=== PATIENT | female | born 1995 | race American Indian/Alaskan Native ===

== ENCOUNTER 2018-08-29 11:05 | Emergency (ER) | payer OTHER ==
--- NOTE | 2018-08-29 11:15 | Emergency Department Report ---
Blank Doc - Documentation Documentation: This is a 22 y.o. female that presents with right sided pain. Patient is 18 wks gestation. She is followed by [facility] in [place]. Patient reports pain is 8/10 on pain scale, pressure, and intermittent. LMP 04/20/2019, A0. Denies vaginal bleeding, vaginal discharge, and back pain. Ordered labs Fast track for further evaluation.
[2018-08-29 11:18] VITALS: BP 114/48
[2018-08-29 12:01] LABS: Bilirubin,Urine NEG (Negative); Blood,Urine NEG (Negative); Color,Urine Yellow (Yellow); Mucus,Urine FEW /HPF; Urobilinogen,Urine < 2.0 mg/dL (<2.0)
[2018-08-29] MEDS ORDERED: NACL 0.9% 1000 ML 1,000 ML IV ONE (12:38)
[2018-08-29] MEDS ORDERED: ZOFRAN IV ONE (12:38)
[2018-08-29] MEDS ORDERED: TYLENOL PO ONE (12:38)
[2018-08-29 12:56] LABS: Basophils % (Auto) 0.5 % (0.0-1.8); Eosinophils % (Auto) 0.1 % (0.0-4.3); Hematocrit 31.6 % (30.3-42.9); Lymphocytes # (Auto) 0.7 K/mm3 (1.2-5.4); Mean Corpuscular HGB Conc 35 % (30-34); Mean Corpuscular Volume 91 fl (79-97); Monocytes # (Auto) 0.2 K/mm3 (0.0-0.8); Platelet Count 161 K/mm3 (140-440); Red Blood Count 3.49 M/mm3 (3.65-5.03)
[2018-08-29 13:32] LABS: Alanine Aminotransferase 12 units/L (7-56); BUN/Creatinine Ratio 13; Blood Urea Nitrogen 8 mg/dL (7-17); Calcium 9.5 mg/dL (8.4-10.2); Hemolysis Index 10
--- NOTE | 2018-08-29 13:38 | Emergency Department Report ---
ED Abdominal Pain HPI - General Chief Complaint: Abdominal Pain Stated Complaint: 18 WKS /DIZZINESS/ABD PAIN Time Seen by Provider: 08/29/18 11:12 Source: patient Mode of arrival: Ambulatory Limitations: No Limitations - History of Present Illness Initial Comments: 22-year-old female currently 18 weeks with no past medical or surgical history presents to the hospital complaining right-sided abdominal pain since 9 PM last night. Patient has had a right lower quadrant and described as intermittent pressure rated a sensitivity admitted to see. Worse with palpation. Patient has had nausea and vomiting 4 episodes this a.m. She den ies hematochezia, hematemesis, diarrhea, melena, dysuria, back distress, vaginal bleeding, or fever. She has had a care with care with [facility]. This is her first . Severity scale (0 -10): 1 - Related Data Previous Rx's Medication Instructions Recorded Last Taken Type Acetaminophen [Tylenol Extra 1 - 2 mg PO Q6HR PRN #20 tablet 08/29/18 Unknown Rx Strength] Ondansetron [Zofran Odt] 4 mg PO Q8HR PRN #20 tab.rapdis 08/29/18 Unknown Rx Allergies Allergy/AdvReac Type Severity Reaction Status Date / Time No Known Allergies Allergy Unverified 08/29/18 11:09 ED Review of Systems ROS: Stated complaint: 18 WKS /DIZZINESS/ABD PAIN Other details as noted in HPI Comment: All other systems reviewed and negative ED Past Medical Hx - Past Medical History Previous Medical History?: No - Surgical History Past Surgical History?: No - Social History Smoking Status: Never Smoker Substance Use Type: None - Medications Home Medications: Home Medications Medication Instructions Recorded Confirmed Last Taken Type Acetaminophen [Tylenol Extra 1 - 2 mg PO Q6HR PRN #20 tablet 08/29/18 Unknown Rx Strength] Ondansetron [Zofran Odt] 4 mg PO Q8HR PRN #20 tab.rapdis 08/29/18 Unknown Rx ED Physical Exam - General Limitations: No Limitations - Other Other exam information: General: No limitations, patient is alert in no acute distress Head exam: Atraumatic, normocephalic Eyes exam: Normal appearance, nonicteric sclera ENT: Moist mucous membrane Neck exam: Normal inspection, full range of motion, no meningismus nontender Respiratory exam: Clear to auscultation bilateral, no wheezes, rales, crackles Cardiovascular: Normal rate and rhythm, normal heart sounds Abdomen: Soft, abdomen, superior pubic right lower quadrant tenderness on exam without rebound or guarding. Normal bowel sounds Extremity: Full range of motion normal inspection no deformity Back: Normal Inspection, full range of motion, no tenderness Neurologic: Alert, oriented x3, cranial nerves intact, no motor or sensory deficit Psychiatric: normal affect, normal mood Skin: Warm, dry, intact ED Course Vital Signs 08/29/18 11:12 Temperature 98.2 F Pulse Rate 97 H Respiratory 18 Rate Blood Pressure 114/48 O2 Sat by Pulse 100 Oximetry - Consultations Consultation #1: 08/29/18 14:[address] Pearce who agrees that follow-up is appropriate. She is provided patient name. ED Medical Decision Making - Lab Data Result diagrams: 08/29/18 12:51 08/29/18 12:51 Lab Results 08/29/18 08/29/18 08/29/18 Range/Units 11:41 12:14 12:14 WBC (4.5-11.0) K/mm3 RBC (3.65-5.03) M/mm3 Hgb (10.1-14.3) gm/dl Hct (30.3-42.9) % MCV (79-97) fl MCH (28-32) pg MCHC (30-34) % RDW (13.2-15.2) % Plt Count (140-440) K/mm3 Lymph % (Auto) (13.4-35.0) % Weld % (Auto) (0.0-7.3) % Eos % (Auto) (0.0-4.3) % Baso % (Auto) (0.0-1.8) % Lymph # (1.2-5.4) K/mm3 Weld # (0.0-0.8) K/mm3 Eos # (0.0-0.4) K/mm3 Baso # (0.0-0.1) K/mm3 Seg Neutrophils % (40.0-70.0) % Seg Neutrophils # (1.8-7.7) K/mm3 Sodium (137-145) mmol/L Potassium (3.6-5.0) mmol/L Chloride (98-107) mmol/L Carbon Dioxide (22-30) mmol/L Anion Gap mmol/L BUN (7-17) mg/dL Creatinine (0.7-1.2) mg/dL Estimated GFR ml/min BUN/Creatinine Ratio % Glucose (65-100) mg/dL Calcium (8.4-10.2) mg/dL Total Bilirubin (0.1-1.2) mg/dL AST (5-40) units/L ALT (7-56) units/L Alkaline Phosphatase (35-129) units/L Total Protein (6.3-8.2) g/dL Albumin (3.9-5) g/dL Albumin/Globulin Ratio % HCG, Quant 89597 H (0-4) mIU/mL Urine Color Yellow (Yellow) Urine Turbidity Cloudy (Clear) Urine pH 8.0 H (5.0-7.0) Ur Specific Howard 1.018 (1.003-1.030) Urine Protein 30 mg/dl (Negative) mg/dL Urine Glucose (UA) Neg (Negative) mg/dL Urine Ketones 20 (Negative) mg/dL Urine Blood Neg (Negative) Urine Nitrite Neg (Negative) Urine Bilirubin Neg (Negative) Urine Urobilinogen < 2.0 (<2.0) mg/dL Ur Leukocyte Esterase Neg (Negative) Urine WBC (Auto) Not Reportable Urine RBC (Auto) 2.0 (0.0-6.0) /HPF U Epithel Cells (Auto) 2.0 (0-13.0) /HPF Urine Mucus Few /HPF Blood Type B POSITIVE 08/29/18 08/29/18 Range/Units 12:51 12:51 WBC 5.1 (4.5-11.0) K/mm3 RBC 3.49 L (3.65-5.03) M/mm3 Hgb 11.0 (10.1-14.3) gm/dl Hct 31.6 (30.3-42.9) % MCV 91 (79-97) fl MCH 32 (28-32) pg MCHC 35 H (30-34) % RDW 14.0 (13.2-15.2) % Plt Count 161 (140-440) K/mm3 Lymph % (Auto) 13.0 L (13.4-35.0) % Weld % (Auto) 4.0 (0.0-7.3) % Eos % (Auto) 0.1 (0.0-4.3) % Baso % (Auto) 0.5 (0.0-1.8) % Lymph # 0.7 L (1.2-5.4) K/mm3 Weld # 0.2 (0.0-0.8) K/mm3 Eos # 0.0 (0.0-0.4) K/mm3 Baso # 0.0 (0.0-0.1) K/mm3 Seg Neutrophils % 82.4 H (40.0-70.0) % Seg Neutrophils # 4.2 (1.8-7.7) K/mm3 Sodium 137 (137-145) mmol/L Potassium 4.4 (3.6-5.0) mmol/L Chloride 101.1 (98-107) mmol/L Carbon Dioxide 22 (22-30) mmol/L Anion Gap 18 mmol/L BUN 8 (7-17) mg/dL Creatinine 0.6 L (0.7-1.2) mg/dL Estimated GFR > 60 ml/min BUN/Creatinine Ratio 13 % Glucose 85 (65-100) mg/dL Calcium 9.5 (8.4-10.2) mg/dL Total Bilirubin 0.30 (0.1-1.2) mg/dL AST 21 (5-40) units/L ALT 12 (7-56) units/L Alkaline Phosphatase 42 (35-129) units/L Total Protein 6.9 (6.3-8.2) g/dL Albumin 4.0 (3.9-5) g/dL Albumin/Globulin Ratio 1.4 % HCG, Quant (0-4) mIU/mL Urine Color (Yellow) Urine Turbidity (Clear) Urine pH (5.0-7.0) Ur Specific Howard (1.003-1.030) Urine Protein (Negative) mg/dL Urine Glucose (UA) (Negative) mg/dL Urine Ketones (Negative) mg/dL Urine Blood (Negative) Urine Nitrite (Negative) Urine Bilirubin (Negative) Urine Urobilinogen (<2.0) mg/dL Ur Leukocyte Esterase (Negative) Urine WBC (Auto) Urine RBC (Auto) (0.0-6.0) /HPF U Epithel Cells (Auto) (0-13.0) /HPF Urine Mucus /HPF Blood Type - Radiology Data Radiology results: report reviewed OB ULTRASOUND History: right lower quadrant pain, . Technique: Transabdominal ultrasound with Doppler interrogation. FINDINGS: Comment: A large right adnexal cyst with a single septation is identified measuring 11.2 x 5.0 x 5.9 cm is identified. This is presumably ovarian in origin. Gestation: Single Position: Cephalic Amniotic Fluid: Within normal limits Placenta: Anterior, left lateral Placental Grade: 0 Heart Rate: 147 BPM BPD: 4.5 cm = 19 w 5 d HC: 17.1 cm = 19 w 5 d AC: 13.2 cm = 18 w 5 d FL: 2.9 cm = 18 w 5 d HC/AC Ratio: 1.3 Cephalic Index: 87.4 Estimated Weight: 260 grams Clinical age = 18 w 5 d EDC: 01/25/19 US Gest. Age = 19 w 2 d EDC: 01/21/19 IMPRESSION: Viable, single intrauterine as described. Large right adnexal cyst as described. - Medical Decision Making Patient is better with the treatment. Pain is likely secondary to large right ovarian cyst. Fetus is normal. No signs of infection. Case discussed with [facility]. She will be discharged with follow-up. - Differential Diagnosis round ligament pain, UTI, renal colic, appendicitis, abnormal Critical Care Time: No Critical care attestation.: If time is entered above; I have spent that time in minutes in the direct care of this critically ill patient, excluding procedure time. ED Disposition Clinical Impression: , Right ovarian cyst, Nausea and vomiting during Disposition: DC-01 TO HOME OR SELFCARE Is pt being admited?: No Does the pt Need Aspirin: No Condition: Stable Instructions: (ED), Ovarian Cyst (ED) Additional Instructions: Take the medication as prescribed. Follow up with your doctor or the clinic/doctor provided. Return if symptoms worsen as indicated by your discharge instructions. May take Tylenol as needed for pain. Maximum dose in a 24-hour period is 4000 mg or 4 g. The maximum dose she can take for one dose is 1000 mg. The maximum dose would be 1000 mg every 6 hours. Prescriptions: Acetaminophen [Tylenol Extra Strength] 1 - 2 mg PO Q6HR PRN #20 tablet PRN Reason: Pain , Severe (7-10) Ondansetron [Zofran Odt] 4 mg PO Q8HR PRN #20 tab.rapdis PRN Reason: Nausea And Vomiting Referrals: [facility] [Provider Group] - 3-5 Days Time of Disposition: 14:42
--- NOTE | 2018-08-29 13:42 | Ultrasound Report ---
OB ULTRASOUND History: right lower quadrant pain, . Technique: Transabdominal ultrasound with Doppler interrogation. FINDINGS: Comment: A large right adnexal cyst with a single septation is identified measuring 11.2 x 5.0 x 5.9 cm is identified. This is presumably ovarian in origin. Gestation: Single Position: Cephalic Amniotic Fluid: Within normal limits Placenta: Anterior, left lateral Placental Grade: 0 Heart Rate: 147 BPM BPD: 4.5 cm = 19 w 5 d HC: 17.1 cm = 19 w 5 d AC: 13.2 cm = 18 w 5 d FL: 2.9 cm = 18 w 5 d HC/AC Ratio: 1.3 Cephalic Index: 87.4 Estimated Weight: 260 grams Clinical age = 18 w 5 d EDC: 01/25/19 US Gest. Age = 19 w 2 d EDC: 01/21/19 IMPRESSION: Viable, single intrauterine as described. Large right adnexal cyst as described.
== END 2018-08-29 14:59 | disposition home or self-care (01) ==
LOC: ED 11:05
DX: O34.82 Maternal care for other abnormalities of pelvic organs, second trimester (principal); N83.201 Unspecified ovarian cyst, right side; O21.8 Other vomiting complicating pregnancy; Z3A.18 18 weeks gestation of pregnancy
CPT/HCPCS: 36415; 76805; 80053; 81001; 84702; 85025; 86900; 86901; 96361; 96374; 99284; J2405; J7030

== ENCOUNTER 2019-01-25 12:24 | Inpatient (IN) | payer OTHER ==
[2019-01-25] MEDS ORDERED: VISTARIL PO ONE (12:52)
[2019-01-25] MEDS ORDERED: SUBLIMAZE IV PRN (13:33)
[2019-01-25] MEDS ORDERED: BRETHINE IVP PRN (13:33)
[2019-01-25] MEDS ORDERED: XYLOCAINE 2% INFILTRATI ONE ×2 (13:33→20:05)
[2019-01-25] MEDS ORDERED: NARCAN 0.4 MG/1 ML IV PRN (13:33)
[2019-01-25] MEDS ORDERED: NUBAIN IV PRN (13:33)
[2019-01-25] MEDS ORDERED: PHENERGAN PO PRN ×2 (13:33→21:37)
[2019-01-25] MEDS ORDERED: CERVIDIL VG ONE (13:33)
[2019-01-25] MEDS ORDERED: MINERAL OIL PO PRN (13:33)
[2019-01-25] MEDS ORDERED: BRETHINE SUB-Q PRN (13:33)
[2019-01-25] MEDS ORDERED: STADOL IV PRN (13:33)
[2019-01-25] MEDS ORDERED: ZOFRAN IV PRN ×2 (13:33→21:37)
[2019-01-25] MEDS ORDERED: PITOCin/NS 30 UNIT/500ML 30 UNITS/500 ML BAG IV SCH ×2 (14:00)
[2019-01-25] MEDS ORDERED: PITOCin/NS 20 UNIT/1000ML DRIP 20 UNITS/1,000 ML BAG IV SCH (14:00)
[2019-01-25] MEDS ORDERED: LACTATED RINGERS 1,000 ML IV SCH (14:00)
[2019-01-25 14:12] LABS: Hemoglobin 11.9 gm/dl (10.1-14.3); Mean Corpuscular HGB Conc 34 % (30-34); Mean Corpuscular Volume 94 fl (79-97); Platelet Count 154 K/mm3 (140-440); Red Blood Count 3.71 M/mm3 (3.65-5.03); Red Cell Distribution Width 15.6 % (13.2-15.2)
--- NOTE | 2019-01-25 17:25 | History and Physical Report ---
History of Present Illness Date of examination: 01/25/19 Date of admission: 01/25/19 12:25 Chief complaint: Contractions History of present illness: Pt is a 23 yo at 40.0 weeks EGA. She presents reporting contractions q5 minutes, positive FM, no LOF or vaginal bleeding. Upon triage NST, one late decel and two variable decelerations were noted. SVE at that time was 1/80/-2. She has received care at [facility] since 12 weeks EGA. Her has been complicated by right ovarian cysts that resolved. 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 She is GBS negative. Past History Past Medical History: no pertinent history Past Surgical History: no surgical history Family/Genetic History: other (carrier Galactosemia) Social history: no significant social history - Obstetrical History Expected Date of Delivery: 01/25/19 Actual Gestation: 40 Week(s) 0 Day(s) : 1 Para: 0 Number of Living Children: 0 Medications and Allergies Allergies Allergy/AdvReac Type Severity Reaction Status Date / Time No Known Allergies Allergy Unverified 08/29/18 11:09 Home Medications Medication Instructions Recorded Confirmed Last Taken Type Acetaminophen [Tylenol Extra 1 - 2 mg PO Q6HR PRN #20 tablet 08/29/18 Unknown Rx Strength] Ondansetron [Zofran Odt] 4 mg PO Q8HR PRN #20 tab.rapdis 08/29/18 Unknown Rx Active Meds: Active Medications Butorphanol Tartrate (Stadol) 2 mg IV Q2H PRN PRN Reason: Pain , Severe (7-10) Ephedrine Sulfate (Ephedrine Sulfate) 10 mg IV Q2M PRN PRN Reason: Hypotension Fentanyl (Sublimaze) 100 mcg IV Q2H PRN PRN Reason: Labor Pain Oxytocin/Sodium Chloride (Pitocin/Ns 20 Unit/1000ml Drip) 20 units in 1,000 mls @ 125 mls/hr IV DIRECT JIM Oxytocin/Sodium Chloride (Pitocin/Ns 30 Unit/500ml) 30 units in 500 mls @ 1 mls/hr IV TITR JIM; Protocol Oxytocin/Sodium Chloride (Pitocin/Ns 30 Unit/500ml) 30 units in 500 mls @ 2 mls/hr IV TITR JIM; Protocol Last Admin: 01/25/19 16:33 Dose: 2 ml/hr, 2 mls/hr Documented by: Lactated Ringer's (Lactated Ringers) 1,000 mls @ 125 mls/hr IV DIRECT JIM Mineral Oil (Mineral Oil) 30 ml PO QHS PRN PRN Reason: Constipation Nalbuphine HCl (Nubain) 10 mg IV Q2H PRN PRN Reason: Pain, Moderate (4-6) Naloxone HCl (Narcan 0.4 Mg/1 Ml) 0.1 mg IV Q2MIN PRN PRN Reason: Res Rate </= 8 or 02 SAT < 92% Ondansetron HCl (Zofran) 4 mg IV Q8H PRN PRN Reason: Nausea And Vomiting Promethazine HCl (Phenergan) 25 mg PO Q6H PRN PRN Reason: Nausea And Vomiting Terbutaline Sulfate (Brethine) 0.25 mg SUB-Q ONCE PRN PRN Reason: Hyperstimulation/Hypertonicity Terbutaline Sulfate (Brethine) 0.25 mg IVP ONCE PRN PRN Reason: Hyperstimulation/Hypertonicity Review of Systems All systems: negative - Vital Signs Vital signs: Vital Signs Pulse BP 111 H 124/68 01/25/19 12:31 01/25/19 12:31 Temp Pulse Resp BP Pulse Ox 98.4 F 95 H 16 114/57 01/25/19 14:26 01/25/19 15:01 01/25/19 14:26 01/25/19 15:01 - Physical Exam Cardiovascular: Regular rate, Normal S1, Normal S2, No murmurs Lungs: Positive: Clear to auscultation, Normal air movement Abdomen: Positive: normal appearance (gravid), soft. Negative: tenderness, guarding Genitourinary (Female): Positive: normal external genitalia Vagina: Positive: normal moisture Uterus: Positive: enlarged (gravid), normal contour Extremities: Positive: normal - Obstetrical FHR: category 1 Uterine Contraction Monitor Mode: External Cervical Dilatation: 5 Cervical Effacement Percentage: 80 station: -2 Uterine Contraction Frequency (min): 2.5 Uterine Contraction Duration: 60 Uterine Contraction Pattern: Regular Uterine Tone Measurement Phase: Contraction Uterine Contraction Intensity: Strong/Firm Results Result Diagrams: 01/25/19 Unknown Abnormal lab results 01/25/19 Range/Units Unknown RDW 15.6 H (13.2-15.2) % All other labs normal. Assessment and Plan A/P 23 yo at 40.0 wks EGA Admit for decelerations at term in early labor Pitocin augmentation Galactosemia carrier GBS negative
[2019-01-25] MEDS ORDERED: MILK OF MAGNESIA PO PRN (21:37)
[2019-01-25] MEDS ORDERED: DULCOLAX PR PRN (21:37)
[2019-01-25] MEDS ORDERED: LANSINOH TP PRN ×2 (21:37)
[2019-01-25] MEDS ORDERED: TYLENOL PO PRN (21:37)
[2019-01-25] MEDS ORDERED: CYTOTEC PR PRN (21:37)
[2019-01-25] MEDS ORDERED: BENADRYL PO PRN (21:37)
[2019-01-25] MEDS ORDERED: PHENERGAN PR PRN (21:37)
[2019-01-25] MEDS ORDERED: TUCKS PAD TP PRN (21:37)
--- NOTE | 2019-01-25 21:45 | Procedure Note ---
OB Delivery Note - Delivery Date of Delivery: 01/25/19 Surgeon: LIZZIE CUI ([facility]) Estimated blood loss: 200cc - Vaginal Delivery presentation: vertex Delivery position: OA Intrapartum events: mult. late decelerations, mult.variable deceleratio Delivery induction: none Delivery augmentation: pitocin Delivery monitor: external FHT, external uterine Route of delivery: Delivery placenta: spontaneous Delivery cord: nuchal cord, 3 umbilical vessels, other (body cord) Episiotomy: none Delivery laceration: other (sulcus abrasion, hemostatic after compression) Anesthesia: intravenous Delivery comments: Excellent maternal effort results in of viable, vigorous male at 2115. Head delivered OA, restituted ROT. Shoulders followed easily. Cord clamped and cut by FOB 6 minutes after . Placenta delivered spontaneously and intact 7 minutes after . Sulcus abrasion weeping blood, hemostatic after compression. Mother plans of breast feeding. - Infant A at 1 minute: 8 at 5 minutes: 9 Gender: Male
[2019-01-25] MEDS ORDERED: SODIUM CHLORIDE FLUSH SYRINGE 10 ML IV NR (22:00)
[2019-01-25] MEDS: IBUPROFEN PO SCH (23:39)
[2019-01-25] MEDS: COLACE PO SCH (23:40)
[2019-01-25] MEDS: FEOSOL PO SCH (23:40)
[2019-01-26] MEDS: IBUPROFEN PO SCH ×3 (05:43→21:06)
--- NOTE | 2019-01-26 08:16 | Progress Note ---
Assessment and Plan A: PPD #1 s/p at term] P: Routine care. Follow up hemoglobin and hematocrit. Monitor clinically. Subjective - Subjective Date of service: 01/26/19 Principal diagnosis: s/p at term Interval history: Pt without complaints presently. Patient reports: appetite normal, voiding normally, pain well controlled, ambulating normally [place]: doing well Objective - Vital Signs Latest vital signs: Vital Signs Temp Pulse Resp BP Pulse Ox 01/26/19 05:43 18 01/26/19 04:15 97.4 F L 75 14 113/66 98 01/25/19 23:39 18 01/25/19 23:24 99.0 F 65 20 122/64 98 01/25/19 22:37 73 120/60 01/25/19 22:22 66 114/61 01/25/19 22:07 70 111/57 01/25/19 21:52 85 114/66 01/25/19 21:38 84 122/69 01/25/19 19:49 18 01/25/19 18:18 80 122/57 01/25/19 15:01 95 H 114/57 01/25/19 14:26 98.4 F 16 01/25/19 12:40 92 H 130/61 01/25/19 12:31 111 H 124/68 Intake and Output 01/25/19 01/26/19 01/26/19 22:59 06:59 14:59 Intake Total 22.533 120 Output Total 1 Balance 22.533 119 Intake: IV 22.533 PITOCin/NS 30 UNIT/500ML 22.533 30 units In 500 ml @ 2 mls/hr IV TITR JIM Rx#: [id number] Oral 120 Output: Urine 1 Void 1 Other: Total, Intake Amount 120 Total, Output Amount 1 # Voids Void 600 Estimated Blood Loss 200 - Exam Breasts: Present: deferred Cardiovascular: Present: Regular rate Lungs: Present: Clear to auscultation Abdomen: Present: soft Uterus: Present: fundal height at umbilicus Extremities: Present: normal - Labs Labs: Abnormal lab results 01/25/19 Range/Units Unknown RDW 15.6 H (13.2-15.2) %
--- NOTE | 2019-01-26 08:18 | Discharge Summary ---
Providers - Providers Date of Admission: 01/25/19 22:07 Date of discharge: 01/27/19 Attending physician: JEFFY DANIELS 01/25/19 21:39 Consult to Geosciences Associate Professor [CONS] Routine Reason For Exam: assistance with , SNS Primary care physician: JEFFY DANIELS Hospitalization Reason for admission: active labor Delivery: Procedure details: Please see delivery note. Episiotomy: none Laceration: other (sulcus abrasion ) Other procedures: none complications: none Discharge diagnosis: IUP at term delivered [place] baby: male Hospital course: Patient was admitted in active labor and went on to have a spontaneous vaginal delivery which she tolerated well. Her course was uncomplicated and she met discharge criteria on day #2. She will follow-up in the office in 4 weeks. Condition at discharge: Stable Disposition: DC- TO HOME OR SELFCARE - Discharge Diagnoses (1) Term of male Status: Acute Plan - Discharge Medications Prescriptions: Ferrous Sulfate [Feosol 325 MG tab] 325 mg PO BID #60 tablet Ibuprofen [Motrin] 600 mg PO Q8H PRN #90 tablet PRN Reason: Pain - Provider Discharge Summary Activity: routine, no sex for 6 weeks, no heavy lifting 4 weeks, no strenuous exercise Diet: routine Instructions: routine Additional instructions: [] Smoking cessation referral if applicable(refer to patient education folder for contact #) [] Refer to [facility]'s [facility] Booklet Call your doctor immediately for: * Fever > 100.5 * Heavy vaginal bleeding ( >1 pad per hour) * Severe persistent headache * Shortness of breath * Reddened, hot, painful area to leg or breast * Drainage or odor from incision. * Keep incision clean and dry at all times and follow doctor's instructions regarding bathing/showering - Follow up plan Follow up: JEFFY DANIELS MD [Primary Care Provider] - 02/22/19 (Please call to schedule appt. Please schedule your son's circumcision before he is one month old. ) Forms: [facility] Discharge Summary, Work/School Excuse Out Patient
[2019-01-26] MEDS: PRENATAL VITAMIN PO SCH (09:30)
[2019-01-26] MEDS: FEOSOL PO SCH ×2 (09:30→21:06)
[2019-01-26] MEDS: COLACE PO SCH ×2 (09:30→21:06)
[2019-01-26 10:06] LABS: Hematocrit 30.3 % (30.3-42.9); Hemoglobin 10.3 gm/dl (10.1-14.3)
[2019-01-27] MEDS: IBUPROFEN PO SCH ×2 (03:34→10:18)
[2019-01-27] MEDS: PRENATAL VITAMIN PO SCH (10:17)
[2019-01-27] MEDS: COLACE PO SCH (10:18)
[2019-01-27] MEDS: FEOSOL PO SCH (10:18)
[2019-01-27 10:38] VITALS: BP 108/55
== END 2019-01-27 13:30 | disposition home or self-care (01) | DRG 775 ==
LOC: TRG 12:24 → INTOOBSV 12:25 → LD 12:25 → TRG 12:25 → UNDOADMOB 12:25 → OBSVTOIN 12:25 → TRG 13:33 → LD 22:07 → OBSVTOIN 22:07 → OB 23:19
PROVIDERS: ADMIT Obstetrics & Gynecology; ATTEND Obstetrics & Gynecology
PROC: 10E0XZZ Delivery of Products of Conception, External Approach (ICD-10-PCS; principal; 2019-01-25)
PROC: 0UQGXZZ Repair Vagina, External Approach (ICD-10-PCS; 2019-01-25)
DX: O76 Abnormality in fetal heart rate and rhythm complicating labor and delivery (principal); Z37.0 Single live birth; Z3A.40 40 weeks gestation of pregnancy; O69.81X0 Labor and delivery complicated by cord around neck, without compression, not applicable or unspecified; O71.89 Other specified obstetric trauma; Z14.8 Genetic carrier of other disease
CPT/HCPCS: 36415; 59200; 85014; 85018; 85027; 86592; 86850; 86900; 86901; G0378; J0595; J2405; J2590; J3010; J7120